=== PATIENT | male | born 1990 | race African-American/Black ===

== ENCOUNTER → 2016-08-26 | Day surgery (SDC) | payer OTHER ==
[~2016-08-26] VITALS: Ht 170.2 cm; Wt 111.1 kg
[~2016-08-26] MED LIST: AMOX875T PO; BUPIVACAINE HCL 0.25% 30 ML VIAL As Ordered ONE; BUPIVACAINE HCL 0.25% 30 ML VIAL XX ONE; BUPR100T3 PO; FERR325T OR; FERR325T3 PO; HYDROmorphone HCL 2 MG/ML 1ML VIAL (J1170) As Ordered ONE; LR 1,000 ML IV SCH; METOCLOPRAMIDE INJ 10MG/2ML VIAL (J2765) As Ordered ONE; METOCLOPRAMIDE INJ 10MG/2ML VIAL (J2765) IV PRN; MIDAZOLAM INJ 2 MG/2 ML VIAL (J2250) As Ordered ONE; MORPHINE 2 MG/ML 1ML SYRINGE IV PRN; NEOSTIGMINE 1MG/ML 5 ML SYRINGE (J2710) As Ordered ONE; NORCO, ANEXSIA 5/325MG TABLET (HYDROcodone/ACETAMINOPHEN) PO PRN; ONDANSETRON 4MG/2ML VIAL (J2405) As Ordered ONE; ONDANSETRON 4MG/2ML VIAL (J2405) IV PRN; PAIN325T OR; PANT20TA PO; PERCOCET 5MG/325MG TAB As Ordered ONE; PERCOCET 5MG/325MG TAB PO PRN; PROPOFOL 500 MG/50 ML VIAL As Ordered ONE; PROT20TA11 PO; RISP1TAB41 PO; ROCURONIUM BROMIDE 50 MG/5 ML VIAL As Ordered ONE; VENL75CA PO; ZOLO50TA PO; dexameTHASONE 4 MG/ML 1ML VIAL (J1100) As Ordered ONE; fentaNYL 100 MCG/2 ML INJECTION (J3010) As Ordered ONE; fentaNYL 100 MCG/2 ML INJECTION (J3010) IV PRN
[2016-08-26 15:20] VITALS: BP 130/70
--- NOTE | 2016-08-28 07:05 | RO ---
DATE OF PROCEDURE: 08/26/2016 PREOPERATIVE DIAGNOSIS: Symptomatic gallstones. POSTOPERATIVE DIAGNOSIS: Symptomatic gallstones. PROCEDURE PERFORMED: Laparoscopic cholecystectomy. SURGEON: Dr. Suman Bolivar ANESTHESIA: General. INDICATIONS FOR PROCEDURE: The patient is a 26-year-old man who has had two episodes of severe upper abdominal pain consistent with attacks of biliary colic. Ultrasound showed a stone in the region of the gallbladder neck. He is now for a laparoscopic cholecystectomy. OPERATIVE PROCEDURE: The patient was placed under general endotracheal anesthesia. The patient's abdomen was prepped and draped in a sterile fashion. 0.25% Marcaine was infiltrated at each of the trocar sites prior to insertion. A short supraumbilical midline incision was made and this was deepened through the subcutaneous tissues to the fascia which was opened in the midline. A Helms cannula was inserted and the abdomen was insufflated with carbon dioxide gas. The patient was tilted to a reverse Trendelenburg position and rolled somewhat to the left. Initial inspection showed what appeared to be a somewhat fatty liver with some blunting of the angles of the liver. The omentum obscured all other structures in the right upper quadrant. Two 5 mm trocars were placed in the right upper quadrant and a third 5 mm trocar was placed in the left upper quadrant. The omentum was pulled down out of the right upper quadrant and the gallbladder was identified. The gallbladder was fairly small, but distended and firm. There may have been some hyperemia. The gallbladder was aspirated of approximately 10-12 mL of thick bile. The gallbladder was then grasped and elevated. Dissection was then begun near the neck of the gallbladder. The peritoneum was opened. Dissection proceeded to identify the cholecystic artery and the cystic duct. The artery was identified coursing adjacent to the cystic duct. The cystic duct was then further dissected and this was also doubly clipped and divided. The gallbladder was then dissected free from the gallbladder bed using cautery dissection. The gallbladder was placed in an Endopouch. The right upper quadrant was then irrigated and inspected. There was no sign of bleeding and no bile leak. The patient was returned to a flat position. The abdomen was deflated and the trocars were all removed. The gallbladder was recovered through the Helms site. The fascia at the Helms site was closed with interrupted simple sutures of #2-0 Vicryl. The skin incisions were all closed with buried #5-0 Vicryl and Steri-Strips. Light dressings were applied. The patient tolerated the procedure well without apparent complication. He was awakened in the operating room, extubated and moved to the recovery room in stable condition.
== END ==
LOC: M SDC 08:59
PROVIDERS: ATTEND Surgery
DX: K80.10 Calculus of gallbladder with chronic cholecystitis without obstruction (principal); F41.9 Anxiety disorder, unspecified; F32.9 Major depressive disorder, single episode, unspecified; D56.0 Alpha thalassemia; F48.1 Depersonalization-derealization syndrome; R87.810 Cervical high risk human papillomavirus (HPV) DNA test positive; K21.9 Gastro-esophageal reflux disease without esophagitis; Z87.820 Personal history of traumatic brain injury; Z79.899 Other long term (current) drug therapy
CPT/HCPCS: 47562; 88304; J1100; J1170; J2250; J2405; J2710; J2765; J3010

== ENCOUNTER 2016-10-09 16:41 | Emergency (ER) | payer OTHER ==
[~2016-10-09] VITALS: Ht 170.2 cm; Wt 108.9 kg
[2016-10-09 16:41] VITALS: BP 147/84
[~2016-10-09 16:41] MED LIST changes: -BUPIVACAINE HCL 0.25% 30 ML VIAL As Ordered ONE; -BUPIVACAINE HCL 0.25% 30 ML VIAL XX ONE; -HYDROmorphone HCL 2 MG/ML 1ML VIAL (J1170) As Ordered ONE; -LR 1,000 ML IV SCH; -METOCLOPRAMIDE INJ 10MG/2ML VIAL (J2765) As Ordered ONE; -METOCLOPRAMIDE INJ 10MG/2ML VIAL (J2765) IV PRN; -MIDAZOLAM INJ 2 MG/2 ML VIAL (J2250) As Ordered ONE; -MORPHINE 2 MG/ML 1ML SYRINGE IV PRN; -NEOSTIGMINE 1MG/ML 5 ML SYRINGE (J2710) As Ordered ONE; -NORCO, ANEXSIA 5/325MG TABLET (HYDROcodone/ACETAMINOPHEN) PO PRN; -ONDANSETRON 4MG/2ML VIAL (J2405) As Ordered ONE; -ONDANSETRON 4MG/2ML VIAL (J2405) IV PRN; -PERCOCET 5MG/325MG TAB As Ordered ONE; -PERCOCET 5MG/325MG TAB PO PRN; -PROPOFOL 500 MG/50 ML VIAL As Ordered ONE; -ROCURONIUM BROMIDE 50 MG/5 ML VIAL As Ordered ONE; -dexameTHASONE 4 MG/ML 1ML VIAL (J1100) As Ordered ONE; -fentaNYL 100 MCG/2 ML INJECTION (J3010) As Ordered ONE; -fentaNYL 100 MCG/2 ML INJECTION (J3010) IV PRN
[2016-10-09] MEDS: METHOCARBAMOL 500 MG TAB PO ONE (19:15)
[2016-10-09] MEDS ORDERED: ROBA500T PO (20:35)
--- NOTE | 2016-10-10 07:39 | REP ---
Clinical: Lower back pain. Comparison: 10/15/2015 . Technique: AP, lateral, bilateral oblique, and coned-down views. Findings: Alignment and lordosis is maintained. The vertebral bodies including transverse process and spinous processes are intact and normal. There is no evidence for acute fracture / compression injury or subluxation. No evidence for spondylolysis or spondylolisthesis. No significant degenerative change is noted. Impression: Normal lumbosacral spine radiograph series. Signed by Jorge Fox MD 10/10/2016 07:31 A
== END 2016-10-09 20:57 | disposition home or self-care (01) ==
LOC: M ED 18:37
DX: M54.5 Low back pain (principal); K21.9 Gastro-esophageal reflux disease without esophagitis; Z79.899 Other long term (current) drug therapy

== ENCOUNTER → 2016-12-01 | Outpatient (REF) | payer OTHER ==
[~2016-12-01] MED LIST changes: +ROBA500T PO
[2016-12-01 16:05] LABS: MEAN CORPUSCULAR HEMOGLOBIN 23.9 pg (27.0-33.0); MEAN CORPUSCULAR HGB CONC 30.6 g/dl (32.0-36.5); MEAN CORPUSCULAR VOLUME 78.2 fl (80.0-96.0); RED CELL DISTRIBUTION WIDTH 14.6 % (11.5-14.5); WHITE BLOOD COUNT 4.7 K/mm3 (4.0-10.0)
== END ==
LOC: M SFHCPLAZ 14:25
PROVIDERS: ATTEND Nurse Practitioner Adult Health
DX: D56.0 Alpha thalassemia (principal)

== ENCOUNTER 2017-02-11 15:32 | Outpatient (RCR) | payer OTHER ==
[~2017-02-11 15:32] MED LIST changes: -RISP1TAB41 PO; +RISP1TAB42 PO; -VENL75CA PO; +VENL75CA2 PO
== END 2017-02-16 | disposition home or self-care (01) ==
LOC: M PT 15:32
PROVIDERS: ATTEND Nurse Practitioner Adult Health
DX: Z51.89 Encounter for other specified aftercare (principal); M54.5 Low back pain

== ENCOUNTER → 2017-07-27 | Outpatient (REF) | payer OTHER ==
[2017-07-27 18:49] LABS: ALBUMIN 4.2 GM/DL (3.2-5.2); ALBUMIN/GLOBULIN RATIO 1.02 (1.00-1.93); ALKALINE PHOSPHATASE 62 U/L (45-117); ALT/SGPT 51 U/L (12-78); ANION GAP 8 MEQ/L (8-16); AST/SGOT 23 U/L (7-37); BILIRUBIN,TOTAL 0.2 MG/DL (0.2-1.0); BLOOD UREA NITROGEN 10 MG/DL (7-18); CALCIUM LEVEL 9.7 MG/DL (8.5-10.1); CARBON DIOXIDE LEVEL 29 MEQ/L (21-32); CHLORIDE LEVEL 102 MEQ/L (98-107); FERRITIN 59 NG/ML (26-388); GLOMERULAR FILTRATION RATE > 60.0 (>60); GLUCOSE, FASTING 86 MG/DL (70-105); IRON (FE) 50 UG/DL (65-175); PERCENT SATURATION 17.9 % (19.7-50.0); POTASSIUM SERUM 3.9 MEQ/L (3.5-5.1); SODIUM LEVEL 139 MEQ/L (136-145); TOTAL IRON BINDING CAPACITY 279 UG/DL (250-450); TOTAL PROTEIN 8.3 GM/DL (6.4-8.2)
[2017-07-27 18:54] LABS: HEMATOCRIT 43.5 % (42.0-52.0); HEMOGLOBIN 13.3 g/dl (14.0-18.0); MEAN CORPUSCULAR HEMOGLOBIN 22.9 pg (27.0-33.0); MEAN CORPUSCULAR HGB CONC 30.6 g/dl (32.0-36.5); PLATELET COUNT, AUTOMATED 230 10^3/uL (150-450); RED CELL DISTRIBUTION WIDTH 16.5 % (11.5-14.5); WHITE BLOOD COUNT 5.8 10^3/uL (4.0-10.0)
[2017-07-27 20:03] LABS: ESTIMATED AVERAGE GLUCOSE 126 MG/DL (60-110)
== END ==
LOC: M SFHCPLAZ 14:26
DX: Z00.00 Encounter for general adult medical examination without abnormal findings (principal); D56.0 Alpha thalassemia

== ENCOUNTER → 2018-01-27 | Outpatient (REF) | payer OTHER ==
[2018-01-27 18:39] LABS: HEMATOCRIT 43.7 % (42.0-52.0); HEMOGLOBIN 13.6 g/dl (13.5-17.5); MEAN CORPUSCULAR HGB CONC 31.1 g/dl (32.0-36.5); MEAN CORPUSCULAR VOLUME 73.9 fl (80.0-96.0); PLATELET COUNT, AUTOMATED 232 10^3/uL (150-450); RED BLOOD COUNT 5.91 10^6/uL (4.30-6.10); RED CELL DISTRIBUTION WIDTH 16.6 % (11.5-14.5); WHITE BLOOD COUNT 4.3 10^3/uL (4.0-10.0)
== END ==
LOC: M SFHCPLAZ 14:48
DX: D56.0 Alpha thalassemia (principal)
CPT/HCPCS: 85027

== ENCOUNTER → 2018-01-27 | Outpatient (REF) | payer OTHER ==
[2018-02-01 10:09] LABS: LAMOTRIGINE (LAMICTAL) 11.9 ug/mL (2.0-20.0)
== END ==
LOC: M LAB REF 18:30
DX: Z51.81 Encounter for therapeutic drug level monitoring (principal); Z79.891 Long term (current) use of opiate analgesic
CPT/HCPCS: 80175

== ENCOUNTER 2018-12-04 16:58 | Emergency (ER) | payer MEDICAID, OTHER ==
[~2018-12-04] VITALS: Ht 170.2 cm; Wt 113.6 kg
[~2018-12-04 16:58] MED LIST changes: -PANT20TA PO; +PANT20TA2 PO
[2018-12-04] MEDS ORDERED: QUET1TAB10 (17:12)
[2018-12-04] MEDS ORDERED: ALL10TAB28 (17:12)
[2018-12-04] MEDS ORDERED: LAMO150T2 (17:12)
[2018-12-04] MEDS ORDERED: BUPR150T3 (17:12)
[2018-12-04] MEDS ORDERED: MONT10TA2 (17:12)
[2018-12-04] MEDS ORDERED: FERR325T18 (17:12)
[2018-12-04 17:44] LABS: BASO % 0.5 % (0.0-1.0); EOS # 0.1 10^3/uL (0.0-0.50); EOS % 1.8 % (0.0-3.0); HEMATOCRIT 44.9 % (42.0-52.0); HEMOGLOBIN 13.7 g/dl (13.5-17.5); LYMPH # 1.8 10^3/uL (1.5-4.5); LYMPH % 41.3 % (24.0-44.0); MEAN CORPUSCULAR HEMOGLOBIN 23.3 pg (27.0-33.0); MEAN CORPUSCULAR HGB CONC 30.5 g/dl (32.0-36.5); MEAN CORPUSCULAR VOLUME 76.5 fl (80.0-96.0); MONO # 0.4 10^3/uL (0.0-0.8); MONO % 9.6 % (0.0-5.0); NEUTROPHILS % 46.6 % (36.0-66.0); PLATELET COUNT, AUTOMATED 231 10^3/uL (150-450); RED BLOOD COUNT 5.87 10^6/uL (4.30-6.10); WHITE BLOOD COUNT 4.4 10^3/uL (4.0-10.0)
[2018-12-04] MEDS ORDERED: ONDANSETRON 4MG/2ML VIAL (J2405) IV ONE (18:00)
[2018-12-04] MEDS ORDERED: NS 1,000 ML IV ONE (18:00)
[2018-12-04] MEDS ORDERED: PANTOPRAZOLE 40MG INJ (PROTONIX) (C9113) IV ONE (18:00)
[2018-12-04 18:44] LABS: ALBUMIN 3.7 GM/DL (3.2-5.2); ALT/SGPT 38 U/L (12-78); BILIRUBIN,DIRECT < 0.1 MG/DL (0.0-0.2); BILIRUBIN,TOTAL 0.4 MG/DL (0.2-1.0); BLOOD UREA NITROGEN 7 MG/DL (7-18); CALCIUM LEVEL 8.6 MG/DL (8.5-10.1); CARBON DIOXIDE LEVEL 29 MEQ/L (21-32); CHLORIDE LEVEL 105 MEQ/L (98-107); CREATININE FOR GFR 1.04 MG/DL (0.70-1.30); GLOMERULAR FILTRATION RATE > 60.0 (>60); GLUCOSE, FASTING 111 MG/DL (70-100); LIPASE 174 U/L (73-393); POTASSIUM SERUM 3.8 MEQ/L (3.5-5.1); SODIUM LEVEL 140 MEQ/L (136-145); TOTAL PROTEIN 8.4 GM/DL (6.4-8.2)
[2018-12-04] MEDS ORDERED: CARA1TAB6 PO (20:41)
[2018-12-04] MEDS ORDERED: COLA100C5 PO (20:41)
[2018-12-04] MEDS ORDERED: PROT1TAB2 PO (20:41)
[2018-12-04 21:03] VITALS: BP 129/73
--- NOTE | 2018-12-05 09:06 | REP ---
HISTORY: Abdominal pain. FINDINGS: Supine and upright views of the abdomen show the intestinal gas pattern to be nonspecific. Gas and stool is seen throughout the colon within the rectosigmoid region. The organ silhouettes insofar as delineated appear unremarkable. No abdominal calcific densities are seen within the abdomen or pelvis. The accompanying single frontal view of the chest shows no free subdiaphragmatic air, cardiomegaly, infiltrates or effusions. IMPRESSION: Nonspecific intestinal gas pattern. Electronically Signed by Sushil Medrano DO 12/05/2018 09:13 A
== END 2018-12-04 21:05 | disposition home or self-care (01) ==
LOC: M ED 16:58 → EDBD 16:58 → M ED 21:05
DX: K29.00 Acute gastritis without bleeding (principal); M54.9 Dorsalgia, unspecified; Z87.828 Personal history of other (healed) physical injury and trauma; R51 Headache; K21.9 Gastro-esophageal reflux disease without esophagitis; H83.09 Labyrinthitis, unspecified ear; F41.9 Anxiety disorder, unspecified; F32.9 Major depressive disorder, single episode, unspecified; D56.0 Alpha thalassemia; F48.1 Depersonalization-derealization syndrome; Z79.899 Other long term (current) drug therapy
CPT/HCPCS: 36415; 74021; 80048; 80076; 83690; 85025; 93041; 96361; 96374; 96375; 99285; C9113; J2405

== ENCOUNTER 2019-04-03 11:29 | Emergency (ER) | payer OTHER ==
[~2019-04-03] VITALS: Ht 170.2 cm; Wt 104.6 kg
[2019-04-03 11:29] VITALS: BP 173/98
[~2019-04-03 11:29] MED LIST changes: +ALL10TAB29; +BUPR150T3; +CARA1TAB6 PO; +COLA100C5 PO; +FERR325T18; +LAMO150T2; +MONT10TA2; +PROT1TAB2 PO; +QUET1TAB10
[2019-04-03] MEDS ORDERED: BUPR300T34 PO (11:41)
[2019-04-03] MEDS ORDERED: FERR325T82 PO (11:41)
== END 2019-04-03 13:39 | disposition home or self-care (01) ==
LOC: M ED 11:29
DX: F41.0 Panic disorder [episodic paroxysmal anxiety] (principal); F41.9 Anxiety disorder, unspecified; Z79.899 Other long term (current) drug therapy

== ENCOUNTER 2019-05-03 08:13 | Emergency (ER) | payer OTHER ==
[~2019-05-03] VITALS: Ht 170.2 cm; Wt 101.4 kg
[~2019-05-03 08:13] MED LIST changes: -ALL10TAB29; +ALL10TAB29 PO; +BUPR300T34 PO; +FERR325T82 PO; -LAMO150T2; +LAMO150T2 PO; -MONT10TA2; +MONT10TA2 PO
[2019-05-03 11:46] VITALS: BP 131/75
== END 2019-05-03 11:47 | disposition home or self-care (01) ==
LOC: M ED 08:13
DX: F43.0 Acute stress reaction (principal); K21.9 Gastro-esophageal reflux disease without esophagitis; F90.9 Attention-deficit hyperactivity disorder, unspecified type; F48.1 Depersonalization-derealization syndrome; Z79.899 Other long term (current) drug therapy

== ENCOUNTER 2020-03-08 17:52 | Emergency (ER) | payer OTHER ==
[~2020-03-08] VITALS: Ht 170.2 cm; Wt 112.3 kg
[~2020-03-08 17:52] MED LIST changes: -ALL10TAB29 PO; -BUPR300T34 PO; +BUPR300T92 PO; +CETI-24 PO; -LAMO150T2 PO; +LAMO150T3 PO; -MONT10TA2 PO; +MONT10TA4 PO; -PANT20TA2 PO; +PANT20TA6 PO
[2020-03-08] MEDS ORDERED: PANT40TA29 (18:01)
[2020-03-08] MEDS ORDERED: FERR325T18 (18:01)
[2020-03-08] MEDS ORDERED: PRED20TA (18:01)
[2020-03-08] MEDS ORDERED: CIPR500T3 (18:01)
[2020-03-08] MEDS ORDERED: BUPR150T3 (18:01)
[2020-03-08 19:54] VITALS: BP 140/90
[2020-03-08] MEDS ORDERED: ACETAMINOPH W/CODEINE #3 TAB UD PO ONE (20:00)
[2020-03-08] MEDS ORDERED: AUGMENTIN 875 MG TAB PO ONE (20:00)
[2020-03-08] MEDS ORDERED: AUGM875T28 PO (20:03)
[2020-03-08] MEDS ORDERED: TYLETAB14 PO (20:03)
[2020-03-08] MEDS ORDERED: FLON1SPR NARES (20:07)
[2020-03-08] MEDS ORDERED: PSEU30TA85 PO (20:07)
[2020-03-08] MEDS ORDERED: CETI10CA2 PO (20:07)
== END 2020-03-08 20:20 | disposition home or self-care (01) ==
LOC: M ED 17:52
DX: H66.002 Acute suppurative otitis media without spontaneous rupture of ear drum, left ear (principal); K21.9 Gastro-esophageal reflux disease without esophagitis; Z79.2 Long term (current) use of antibiotics

== ENCOUNTER 2020-05-06 04:14 | Emergency (ER) | payer OTHER ==
[~2020-05-06] VITALS: Ht 170.2 cm; Wt 116.6 kg
[~2020-05-06 04:14] MED LIST changes: +AUGM875T28 PO; +CETI10CA2 PO; +CIPR500T3; +FLON1SPR NARES; +PANT40TA29; +PRED20TA; +PSEU30TA85 PO; +TYLETAB14 PO
[2020-05-06] MEDS ORDERED: ASPI81CH2 PO (04:28)
[2020-05-06] MEDS ORDERED: MAPA500C PO (04:28)
[2020-05-06] MEDS ORDERED: DOCUSATE SOD LIQ 100MG/10ML UDC XX ONE (05:30)
[2020-05-06] MEDS ORDERED: ACETAMINOPHEN 500 MG TAB PO ONE (06:00)
[2020-05-06 06:17] VITALS: BP 158/88
== END 2020-05-06 06:18 | disposition home or self-care (01) ==
LOC: M ED 04:14
DX: H92.01 Otalgia, right ear (principal); H61.21 Impacted cerumen, right ear; F32.9 Major depressive disorder, single episode, unspecified; Z79.82 Long term (current) use of aspirin; Z79.899 Other long term (current) drug therapy

== ENCOUNTER 2021-01-22 00:07 | Emergency (ER) | payer OTHER ==
[~2021-01-22] VITALS: Ht 170.2 cm; Wt 120.3 kg
[~2021-01-22 00:07] MED LIST changes: +ASPI81CH2 PO; +BUPR150T12; -BUPR150T3; +MAPA500C PO; +MONT10TA10 PO; -MONT10TA4 PO; -QUET1TAB10; +QUET300T2
[2021-01-22] MEDS ORDERED: KETOROLAC 60MG 2ML VIAL IM ONE (04:40)
[2021-01-22] MEDS ORDERED: AUGMENTIN 875 MG TAB PO ONE (04:40)
[2021-01-22] MEDS ORDERED: KETO10TAB PO (04:40)
[2021-01-22] MEDS ORDERED: AUGM875T28 PO (04:40)
[2021-01-22 05:18] VITALS: BP 168/90
== END 2021-01-22 05:21 | disposition home or self-care (01) ==
LOC: M ED 00:07
DX: K02.9 Dental caries, unspecified (principal); F32.9 Major depressive disorder, single episode, unspecified; Z91.5 Personal history of self-harm; Z87.820 Personal history of traumatic brain injury; Z79.82 Long term (current) use of aspirin; Z79.899 Other long term (current) drug therapy
CPT/HCPCS: 96372; 99283; J1885

== ENCOUNTER 2021-02-04 22:04 | Emergency (ER) | payer OTHER ==
[~2021-02-04] VITALS: Ht 170.2 cm; Wt 115.9 kg
[~2021-02-04 22:04] MED LIST changes: +KETO10TAB PO
[2021-02-04 22:05] VITALS: BP 167/98
[2021-02-04] MEDS ORDERED: QUET300T2 (22:14)
[2021-02-05] MEDS ORDERED: CIPRODEX OTIC SUSP 7.5ML AS ONE (03:35)
[2021-02-05] MEDS ORDERED: AMOXICILLIN 500 MG CAP PO ONE (03:35)
[2021-02-05] MEDS ORDERED: AMOX500C PO (03:37)
[2021-02-05] MEDS ORDERED: CIPR7.5D5 AS (03:37)
== END 2021-02-05 04:07 | disposition home or self-care (01) ==
LOC: M ED 22:04
DX: H60.92 Unspecified otitis externa, left ear (principal); K21.9 Gastro-esophageal reflux disease without esophagitis; F41.1 Generalized anxiety disorder; F17.200 Nicotine dependence, unspecified, uncomplicated; Z79.82 Long term (current) use of aspirin; Z79.899 Other long term (current) drug therapy

== ENCOUNTER 2021-07-07 23:14 | Emergency (ER) | payer OTHER ==
[~2021-07-07] VITALS: Ht 170.2 cm; Wt 118.2 kg
[~2021-07-07 23:14] MED LIST changes: +AMOX500C PO; +CIPR7.5D5 AS; -PSEU30TA85 PO; +PSEU30TA86 PO
[2021-07-08] MEDS ORDERED: CLEO300C2 PO (02:34)
[2021-07-08] MEDS ORDERED: IBUP-1022 PO (02:34)
[2021-07-08] MEDS ORDERED: KETOROLAC 60MG 2ML VIAL IM ONE (02:35)
[2021-07-08] MEDS ORDERED: CLINDAMYCIN 150MG CAPSULE PO ONE (02:35)
[2021-07-08 03:15] VITALS: BP 181/105
== END 2021-07-08 03:20 | disposition home or self-care (01) ==
LOC: M ED 23:14
DX: K08.89 Other specified disorders of teeth and supporting structures (principal); D56.9 Thalassemia, unspecified; F32.9 Major depressive disorder, single episode, unspecified; Z79.899 Other long term (current) drug therapy
CPT/HCPCS: 96372; 99283; J1885

== ENCOUNTER 2022-06-22 11:46 | Emergency (ER) | payer OTHER ==
[~2022-06-22] VITALS: Ht 170.2 cm; Wt 122.0 kg
[~2022-06-22 11:46] MED LIST changes: +BUPR-70 PO; -BUPR100T3 PO; +CLEO300C2 PO; +IBUP-1022 PO; -MONT10TA10 PO; +MONT10TA97 PO
[2022-06-22] MEDS ORDERED: PANT20TA6 (12:03)
[2022-06-22] MEDS ORDERED: GABA-282 (12:03)
[2022-06-22] MEDS ORDERED: BOOSTRIX/ADACEL VACCINE (DIPHTH/PERTUSS/ACELL/TETANUS) 0.5ML SYR IM ONE (12:10)
[2022-06-22] MEDS ORDERED: ACETAMINOPHEN TAB 650MG DOSE (2X325MG) PO ONE (12:30)
[2022-06-22] MEDS ORDERED: DERMABOND TOPICAL SKIN ADHESIVE TOP ONE (12:30)
[2022-06-22 13:26] VITALS: BP 134/98
== END 2022-06-22 13:28 | disposition home or self-care (01) ==
LOC: M ED 11:46
DX: S61.212A Laceration without foreign body of right middle finger without damage to nail, initial encounter (principal); W26.8XXA Contact with other sharp object(s), not elsewhere classified, initial encounter; Y92.099 Unspecified place in other non-institutional residence as the place of occurrence of the external cause; F41.9 Anxiety disorder, unspecified; F32.9 Major depressive disorder, single episode, unspecified; Z79.899 Other long term (current) drug therapy